=== PATIENT | female | born 1945 | race Caucasian/White ===

== ENCOUNTER 2016-10-05 13:06 | Inpatient (IN) | payer OTHER, SELFPAY ==
[~2016-10-05] VITALS: Ht 167.6 cm; Wt 68.0 kg
[2016-10-05 13:33] LABS: HEMOGLOBIN 12.6 gm/dl (12.3-15.3); RED BLOOD COUNT 4.71 M/UL (4.00-5.10); WHITE BLOOD COUNT 11.1 K/UL (4.5-11.0)
[2016-10-05] MEDS ORDERED: TOPROL XL50 MG PO (21:19)
[2016-10-05] MEDS ORDERED: ALTACE10 MG PO (21:20)
[2016-10-05] MEDS ORDERED: NORVASC 5 MG TAB5 MG PO (21:21)
[2016-10-05] MEDS ORDERED: NORVASC5 MG PO (21:24)
[2016-10-05] MEDS ORDERED: LIPITOR TAB 2020 MG PO (21:24)
[2016-10-05] MEDS ORDERED: PLAVIX 75 MG TA75 MG PO (21:24)
[2016-10-06] MEDS ORDERED: SYNTHROID88 MCG PO (00:53)
[2016-10-06 06:03] LABS: HEMOGLOBIN 11.9 gm/dl (12.3-15.3); RED BLOOD COUNT 4.49 M/UL (4.00-5.10)
[2016-10-06 06:21] LABS: WHITE BLOOD COUNT 7.8 K/UL (4.5-11.0)
[2016-10-06 06:23] LABS: BUN/CREATININE RATIO 12 (0-10)
[2016-10-07 06:28] LABS: HEMOGLOBIN 11.4 gm/dl (12.3-15.3); RED BLOOD COUNT 4.28 M/UL (4.00-5.10); WHITE BLOOD COUNT 6.9 K/UL (4.5-11.0)
[2016-10-07 06:44] LABS: BUN/CREATININE RATIO 14 (0-10)
[2016-10-07] MEDS ORDERED: ASPIRIN EC81 MG PO (16:11)
[2016-10-07] MEDS ORDERED: LOPRESSOR 25 MG25 MG PO (16:12)
[2016-10-07] MEDS ORDERED: LEVAQUIN500 MG PO (16:12)
[2016-10-07] MEDS ORDERED: TYLENOL 325MG325 MG PO (16:13)
[2016-10-07] MEDS ORDERED: ROBITUSSIN DM473 ML PO (16:14)
[2016-10-07] MEDS ORDERED: RAMIPRIL5 MG PO (16:36)
== END 2016-10-07 16:40 | disposition home or self-care (01) | DRG 194 ==
LOC: ER1 13:06 → M/S 18:33 → ZEROF 18:33 → ER1 20:15 → M/S 20:57
PROVIDERS: Emergency Medicine; ADMIT Internal Medicine Infectious Disease
DX: J18.9 Pneumonia, unspecified organism (principal); E87.2 Acidosis; I25.10 Atherosclerotic heart disease of native coronary artery without angina pectoris; I10 Essential (primary) hypertension; E78.5 Hyperlipidemia, unspecified; E89.0 Postprocedural hypothyroidism; Z90.711 Acquired absence of uterus with remaining cervical stump; Z95.5 Presence of coronary angioplasty implant and graft; Z82.49 Family history of ischemic heart disease and other diseases of the circulatory system; Z88.0 Allergy status to penicillin; Z79.899 Other long term (current) drug therapy; Z79.02 Long term (current) use of antithrombotics/antiplatelets; Z79.82 Long term (current) use of aspirin
CPT/HCPCS: 36415; 71010; 71020; 80048; 80053; 80061; 82550; 82553; 83605; 83874; 83880; 84443; 84484; 85025; 87040; 93005; 94640; 94664; 96365; 96366; 99285; J1040; J1650; J1956; J7030

== ENCOUNTER → 2017-02-27 | Outpatient (CLI) | payer OTHER ==
[~2017-02-27] MED LIST: ALTACE10 MG PO; ASPIRIN EC81 MG PO; LEVAQUIN500 MG PO; LIPITOR TAB 2020 MG PO; LOPRESSOR 25 MG25 MG PO; NORVASC 5 MG TAB5 MG PO; NORVASC5 MG PO; PLAVIX 75 MG TA75 MG PO; RAMIPRIL5 MG PO; ROBITUSSIN DM473 ML PO; SYNTHROID88 MCG PO; TOPROL XL50 MG PO; TYLENOL 325MG325 MG PO
== END ==
LOC: KOH-I 13:43 → MRI 14:00
DX: M54.15 Radiculopathy, thoracolumbar region (principal); M43.16 Spondylolisthesis, lumbar region; M99.73 Connective tissue and disc stenosis of intervertebral foramina of lumbar region; M99.74 Connective tissue and disc stenosis of intervertebral foramina of sacral region; M51.17 Intervertebral disc disorders with radiculopathy, lumbosacral region
CPT/HCPCS: 72148

== ENCOUNTER 2021-02-24 11:07 | Emergency (ER) | payer OTHER ==
[~2021-02-24 11:07] MED LIST changes: +ASPIR 8181 MG PO; +CLONIDINE HCL0.1 MG PO; +CLOPIDOGREL75 MG PO; +DICLOFENAC SODI25 MG PO; +ELIQUIS5 MG PO; +FOLIC ACID 1 MG1 MG PO; +LEVOTHYROXINE75 MCG PO; +LIPITOR40 MG PO; +NITROGLYCERIN0.4 MG SL; +RAMIPRIL10 MG PO; +VITAMIN D 40400 UNIT PO
[2021-02-24 13:38] LABS: HEMOGLOBIN 14.6 gm/dl (12.3-15.3); RED BLOOD COUNT 5.57 M/UL (4.00-5.10); WHITE BLOOD COUNT 5.1 K/UL (4.5-11.0)
== END 2021-02-24 19:00 | disposition home or self-care (01) ==
LOC: ER1 11:07
DX: Z23 Encounter for immunization (principal); U07.1 COVID-19; E87.6 Hypokalemia; E87.1 Hypo-osmolality and hyponatremia; E03.9 Hypothyroidism, unspecified; I25.10 Atherosclerotic heart disease of native coronary artery without angina pectoris; I10 Essential (primary) hypertension; E87.5 Hyperkalemia; Z95.5 Presence of coronary angioplasty implant and graft
CPT/HCPCS: 71045; 80053; 82550; 82553; 84484; 85025; 93005; 96374; 99285; J2405; M0243; U0002

== ENCOUNTER → 2022-02-15 | Outpatient (CLI) | payer OTHER | LOC: KOH-I 11:48 | DX: M25.532 Pain in left wrist (principal); M79.632 Pain in left forearm; S62.102A Fracture of unspecified carpal bone, left wrist, initial encounter for closed fracture; S52.92XA Unspecified fracture of left forearm, initial encounter for closed fracture; W19.XXXA Unspecified fall, initial encounter | CPT/HCPCS: 73090; 73110 ==